=== PATIENT | male | born 1940 | race Caucasian/White ===

== ENCOUNTER 2020-05-30 13:38 | Inpatient (IN) | payer MEDICARE ==
[~2020-05-30] VITALS: Ht 180.3 cm; Wt 87.1 kg
[2020-05-30] MEDS ORDERED: LEVE250T2 PO (14:00)
[2020-05-30] MEDS ORDERED: QUET25TA PO (14:00)
[2020-05-30] MEDS ORDERED: FISH1CAP16 PO (14:00)
[2020-05-30] MEDS ORDERED: ESCI10TA PO (14:00)
[2020-05-30] MEDS ORDERED: ALBU8.5H8 IH (14:00)
[2020-05-30] MEDS ORDERED: NA P133E RC (14:00)
[2020-05-30] MEDS ORDERED: CYAN-51 PO (14:00)
[2020-05-30] MEDS ORDERED: BISA10SU11 RC (14:00)
[2020-05-30] MEDS ORDERED: CHOL100040 PO (14:00)
[2020-05-30] MEDS ORDERED: FERR325T23 PO (14:00)
[2020-05-30] MEDS ORDERED: CLON1TAB PO (14:00)
[2020-05-30] MEDS ORDERED: TRAM50TA2 PO (14:00)
[2020-05-30] MEDS ORDERED: LAMO150T2 PO (14:00)
[2020-05-30] MEDS ORDERED: ASCO-352 PO (14:00)
[2020-05-30] MEDS ORDERED: AMLO5TAB9 PO (14:00)
[2020-05-30] MEDS ORDERED: POLY17PO4 PO (14:00)
[2020-05-30] MEDS ORDERED: OXYC5CAP18 PO (14:00)
[2020-05-30] MEDS ORDERED: LOVA40TA2 PO (14:00)
[2020-05-30] MEDS ORDERED: ACET-868 PO (14:00)
[2020-05-30] MEDS ORDERED: BISA5TAB10 PO (14:00)
[2020-05-30] MEDS ORDERED: MELA1TAB17 PO (14:00)
[2020-05-30] MEDS ORDERED: VITA400C19 PO (14:00)
[2020-05-30] MEDS ORDERED: MAGN400O6 PO (14:00)
[2020-05-30] MEDS ORDERED: FOLI0.4T2 PO (14:00)
[2020-05-30] MEDS ORDERED: OMEP40CA13 PO (14:00)
--- NOTE | 2020-05-30 14:29 | NUR ---
CALLED ART, CHIEF DESIGN DRAFTER FOR PSYCH EVAL.
--- NOTE | 2020-05-30 14:35 | NUR ---
COVID SWAB DONE AND SENT TO LAB
--- NOTE | 2020-05-30 16:03 | NUR ---
REPORT GIVEN TO CHARLOTTE GOMEZ FOR [facility]. PT TO 216-A
--- NOTE | 2020-05-30 16:18 | NUR ---
PT TRANPORTED TO UNIT ON WHEELCHAIR ON STABLE CONDITION.
--- NOTE | 2020-05-30 16:30 | NUR ---
GPS/RN RECEIVED PT [facility] (ORIGINALLY FROM [facility]) ON 5150 FOR GD. PT REFUSING TO TAKE MEDS AND IS ELOPEMENT RISK PER REPORT.ADMITTING ORDERS FROM DR CARRANZA RECEIVED AND CARRIED OUT. BELONGINGS CHECKED FOR CONTRABAND. NO SI OR HI AT THE TIME OF ADMISSION. FAMILY NOTIFIED OF ADMISSION BY CHARGE NURSE TY PORTER. VSS,AMBULATORY.
[2020-05-30 16:38] VITALS: BP 127/61
[2020-05-30] MEDS ORDERED: MAG HYDROX/AL HYDROX/SIMETH 30 ML UDC PO PRN (17:00)
[2020-05-30] MEDS ORDERED: BLOOD SUGAR DIAGNOSTIC 1 EACH STRIP IN ONE (17:00)
[2020-05-30] MEDS ORDERED: clonazePAM 0.5 MG TABLET PO PRN (17:00)
[2020-05-30] MEDS ORDERED: MAGNESIUM HYDROXIDE 30 ML UDC PO PRN ×2 (17:00→17:30)
--- NOTE | 2020-05-30 17:25 | NUR ---
rn notes 88 BS at this time, no coverage needed, patient about to eat dinner
[2020-05-30] MEDS ORDERED: TRAMADOL HCL 50 MG TABLET PO PRN (17:30)
[2020-05-30] MEDS ORDERED: BISACODYL (5 MG) 5 MG TABLET.DR PO PRN (17:30)
[2020-05-30] MEDS ORDERED: NA PHOS,M-B/NA PHOS,DI-BA 1 EA ENEMA RC PRN (17:30)
[2020-05-30] MEDS ORDERED: ACETAMINOPHEN 325 MG TABLET PO PRN (17:30)
[2020-05-30] MEDS ORDERED: POLYETHYLENE GLYCOL 3350 17 GM POWD.PACK PO PRN (17:30)
[2020-05-30] MEDS ORDERED: BISACODYL SUPP (10 MG) 10 MG/SUPP.RECT SUPP.RECT RC PRN (17:30)
[2020-05-30] MEDS ORDERED: ALBUTEROL FS 2.5 MG/0.5 ML VIAL.NEB NEB PRN (19:30)
[2020-05-30 20:17] VITALS: BP 126/59
[2020-05-30] MEDS: ATORVASTATIN 10 MG TABLET PO SCH (21:28)
[2020-05-30] MEDS: TEMAZEPAM 7.5 MG CAPSULE PO PRN (21:34)
--- NOTE | 2020-05-30 21:35 | NUR ---
GPS-RN NOTE: INSOMNIA PATIENT UNABLE TO SLEEP. ADMINISTERED RESTORIL 7.5MG PO ORDERED. WILL CONTINUE TO MONITOR.
[2020-05-31 07:10] LABS: ALBUMIN 3.3 g/dL (3.4-5.0); BILIRUBIN,TOTAL 0.6 mg/dL (0.2-1.0); CALCIUM, SERUM 8.5 mg/dL (8.5-10.1); CREATININE 1.2 mg/dL (0.6-1.3); POTASSIUM 4.5 mmol/L (3.5-5.1); TOTAL PROTEIN, SERUM 7.2 g/dL (6.4-8.2)
[2020-05-31 08:00] VITALS: BP 135/84
[2020-05-31] MEDS: ASCORBIC ACID 500 MG TABLET PO SCH (10:07)
[2020-05-31] MEDS: PANTOPRAZOLE 40 MG TABLET.DR PO SCH (10:07)
[2020-05-31] MEDS: FERROUS SULFATE (325 MG) 325 MG/TAB TABLET PO SCH (10:07)
[2020-05-31] MEDS: LEVETIRACETAM (250 MG) 250 MG TABLET PO SCH ×2 (10:07→17:49)
[2020-05-31] MEDS: AMLODIPINE BESYLATE 5 MG TABLET PO SCH (10:08)
--- NOTE | 2020-05-31 13:26 | NUR ---
dr. salazar here made aware pt. needs macrodantin med for uti-med ordered.
[2020-05-31] MEDS: QUETIAPINE FUMARATE 25 MG TABLET PO SCH ×2 (14:10→17:49)
[2020-05-31] MEDS: LamoTRIgine 100 MG TABLET PO SCH ×2 (14:10→21:40)
--- NOTE | 2020-05-31 15:48 | NUR ---
given clonopin for agitation.
[2020-05-31 16:00] VITALS: BP 140/85
[2020-05-31] MEDS ORDERED: TEMAZEPAM 7.5 MG CAPSULE PO PRN (16:30)
[2020-05-31] MEDS ORDERED: LORAZEPAM 0.5 MG TABLET PO PRN (16:30)
[2020-05-31] MEDS: clonazePAM 0.5 MG TABLET PO SCH (17:00)
--- NOTE | 2020-05-31 17:50 | NUR ---
klonopin not given at this time as pt. just had med at 1542.
[2020-05-31 20:16] VITALS: BP 127/89
[2020-05-31] MEDS: Z GUARD REMEDY 2 OZ OINT TP PRN (20:56)
[2020-05-31] MEDS: ATORVASTATIN 10 MG TABLET PO SCH (21:58)
[2020-05-31] MEDS: QUETIAPINE FUMARATE 100 MG TABLET PO SCH (22:45)
[2020-06-01] MEDS: PANTOPRAZOLE 40 MG TABLET.DR PO SCH (07:30)
[2020-06-01 08:00] VITALS: BP 135/80
[2020-06-01] MEDS: clonazePAM 0.5 MG TABLET PO SCH ×2 (09:23→17:43)
[2020-06-01] MEDS: LEVETIRACETAM (250 MG) 250 MG TABLET PO SCH ×2 (09:23→17:43)
[2020-06-01] MEDS: LamoTRIgine 100 MG TABLET PO SCH ×2 (09:23→21:09)
[2020-06-01] MEDS: AMLODIPINE BESYLATE 5 MG TABLET PO SCH (09:23)
[2020-06-01] MEDS: ASCORBIC ACID 500 MG TABLET PO SCH (09:24)
[2020-06-01] MEDS: FERROUS SULFATE (325 MG) 325 MG/TAB TABLET PO SCH (09:24)
[2020-06-01] MEDS: QUETIAPINE FUMARATE 25 MG TABLET PO SCH ×2 (09:24→17:43)
[2020-06-01] MEDS ORDERED: OLANZAPINE 10 MG VIAL IM STA (12:35)
--- NOTE | 2020-06-01 12:36 | NUR ---
RN NOTE:PATIENT AGITATED AND YELLING ,ASSAULTIVE NOT FOLLOWING DIRECTIONS CALLED WITH NEW ORDER ZYPREXA 5MG IM ,PATIENT VOLUNTARILY ACCEPT ZYPREXA 5MG IM STAT.WILL CONTINUE TO MONITOR .
--- NOTE | 2020-06-01 14:28 | NUR ---
RN NOTE:PATIENT MEDICATED WITH ATIVAN 0.5MG FOR ANXIETY ,WILL CONTINUE TO MONITOR.
--- NOTE | 2020-06-01 14:42 | NUR ---
RN-CO: Patient is still awake after giving Zyprexa 5 mg IM, non redirectable with very unsteady gait. Trying to walk and refusing assistance from the staff. Tried to hit RN and LISW when we tried to assists him. Family called to unit and complaining that we placed him in kei chair. Dr Case was paged and she ordered 1:1 sitter until pt is redirectable.
[2020-06-01 15:50] LABS: BASOPHILS # (AUTO) 0.1 /CMM (0.0-0.2); BASOPHILS % (AUTO) 1.2 % (0.0-2.0); EOSINOPHILS % (AUTO) 2.4 % (0.0-6.0); HEMATOCRIT 44 % (39-51); HEMOGLOBIN 14.5 g/dL (13.5-17.5); LYMPHOCYTES # (AUTO) 2.8 /CMM (0.8-4.8); LYMPHOCYTES % (AUTO) 27.9 % (20.0-44.0); MEAN CORPUSCULAR HGB CONC 33 g/dl (31.0-36.0); MEAN CORPUSCULAR VOLUME 97 fL (80-96); MONOCYTES # (AUTO) 0.9 /CMM (0.1-1.30); MONOCYTES % (AUTO) 9.3 % (2.0-12.0); NEUTROPHILS # (AUTO) 5.9 /CMM (1.8-8.9); NEUTROPHILS % (AUTO) 59.2 % (43.0-81.0); PLATELET COUNT (AUTO) 301 /CMM (150-450); RED BLOOD CELL COUNT(AUTO) 4.52 MIL/uL (4.5-6.0)
[2020-06-01 16:00] VITALS: BP 119/72
[2020-06-01 16:24] LABS: ALBUMIN 3.7 g/dL (3.4-5.0); BILIRUBIN,TOTAL 0.4 mg/dL (0.2-1.0); CALCIUM, SERUM 8.9 mg/dL (8.5-10.1); CREATININE 1.3 mg/dL (0.6-1.3); POTASSIUM 4.3 mmol/L (3.5-5.1); TOTAL PROTEIN, SERUM 7.7 g/dL (6.4-8.2)
[2020-06-01 20:11] VITALS: BP 141/80
[2020-06-01] MEDS: QUETIAPINE FUMARATE 100 MG TABLET PO SCH (22:10)
[2020-06-01] MEDS: ATORVASTATIN 10 MG TABLET PO SCH (22:10)
--- NOTE | 2020-06-02 05:55 | NUR ---
GPS RN NOTE PATIENT SLEPT WELL AT NIGHT, ON 1:1 SITTER OBSERVATION FOR FALL PREVENTION. ATTEMPTS TO GET OUT OF BED UNASSISTED, UNSTEADY, HIGH FALL RISK. PATIENT IS REDIRECTABLE ONCE EXPLAINED BUT NEEDS FREQUENT REMINDERS DUE TO CONFUSION & FORGETFULNESS. NO AGITATION EPISODES NOTED AT NIGHT. CONTINUING TO MONITOR FO SAFETY, MOOD & BEHAVIOR.
[2020-06-02] MEDS: PANTOPRAZOLE 40 MG TABLET.DR PO SCH (07:46)
[2020-06-02 08:00] VITALS: BP 129/70
--- NOTE | 2020-06-02 09:00 | NUR ---
RN NOTE- PT IN BED ALERT ORIENTED TO PERSON ONLY CONFUSED DISORGANIZED MED COMPLIANT DENIES SI HI AH VH THOUGH CONFUSION AND THOUGHT PROCESSES MAKE THIS SUSPECT. PT WITH NO BEHAVIORAL ISSUES THIS MORNING . PO INTAKE GOOD
[2020-06-02] MEDS: LamoTRIgine 100 MG TABLET PO SCH ×2 (09:35→21:00)
[2020-06-02] MEDS: FERROUS SULFATE (325 MG) 325 MG/TAB TABLET PO SCH (09:36)
[2020-06-02] MEDS: LEVETIRACETAM (250 MG) 250 MG TABLET PO SCH ×2 (09:37→16:11)
[2020-06-02] MEDS: AMLODIPINE BESYLATE 5 MG TABLET PO SCH (09:37)
[2020-06-02] MEDS: ASCORBIC ACID 500 MG TABLET PO SCH (09:37)
[2020-06-02] MEDS: OLANZAPINE 5 MG/TAB.RAPDIS PO SCH ×2 (09:40→16:11)
--- NOTE | 2020-06-02 11:58 | NUR ---
WOUND CARE CONSULT: PT EATING AT THIS TIME. PER RN, PT BECOMES EASILY AGITATED. WILL SEE PT AT LATER TIME PT CONDITION PERMITS.
--- NOTE | 2020-06-02 12:14 | NUR ---
Initial Discharge Plan: Patient currently resides at [facility] [address] [place] [address] ([phone]). ANTONIO spoke with Abdullahi, community sports coordinator at the facility who stated that the patient was there for short-term care, and theya re unsure at this time if they can accept him back due to his behaviors. ANTONIO spoke with pt's , Lauren ([phone]) and discussed treatment and discharge planning.
--- NOTE | 2020-06-02 12:17 | NUR ---
Family Contact: ANTONIO spoke with pt's , Lauren ([phone]) and discussed treatment and discharge planning. Lauren stated that she would like patient to return to [facility] for short term therapy and then she would like to to return back home. This pattern chart writer informed Lauren to speak with the facility regarding her requests.
--- NOTE | 2020-06-02 12:18 | NUR ---
ANTONIO Facility Contact: Patient currently resides at [facility] [address] [place] [address] ([phone]). ANTONIO spoke with Abdullahi, rn admissions at the facility who stated that the patient was there for short-term care, and they are unsure at this time if they can accept him back due to his behaviors. This marine underwriter explained that the patient will be stabilized and have the appropriate medications before returning back to their facility. Abdullahi stated that she will speak with the patient's family and discuss a plan.
[2020-06-02] MEDS: clonazePAM 0.5 MG TABLET PO SCH ×2 (13:18→16:11)
[2020-06-02 16:00] VITALS: BP 121/78
[2020-06-02 19:56] VITALS: BP 126/71
[2020-06-02] MEDS: ATORVASTATIN 10 MG TABLET PO SCH (21:03)
[2020-06-02] MEDS: TEMAZEPAM 7.5 MG CAPSULE PO PRN (21:44)
[2020-06-03] MEDS: ACETAMINOPHEN 325 MG TABLET PO PRN ×2 (06:17→22:23)
--- NOTE | 2020-06-03 06:24 | NUR ---
GPS RN NOTE: PT WOKE UP THIS MORNING AT 0600 AND HAD A BM, AFTER WHICH PT COMPLAINED OF SHOULDER PAIN. TYLENOL 325MG 2 TABS/650MG GIVEN PO PRN ORDERED. PT CURRENTLY LAYING IN BED CALM, NO S/S OF DISTRESS. WILL CONTINUE TO MONITOR AND ENDORSE TO AM SHIFT.
[2020-06-03] MEDS: PANTOPRAZOLE 40 MG TABLET.DR PO SCH ×2 (07:42→08:20)
[2020-06-03 08:00] VITALS: BP 147/95
[2020-06-03] MEDS: clonazePAM 0.5 MG TABLET PO SCH ×3 (08:19→16:02)
[2020-06-03] MEDS: FERROUS SULFATE (325 MG) 325 MG/TAB TABLET PO SCH (08:19)
[2020-06-03] MEDS: ASCORBIC ACID 500 MG TABLET PO SCH (08:19)
[2020-06-03] MEDS: LamoTRIgine 100 MG TABLET PO SCH ×2 (08:20→21:04)
[2020-06-03] MEDS: LEVETIRACETAM (250 MG) 250 MG TABLET PO SCH ×2 (08:20→16:02)
[2020-06-03] MEDS: OLANZAPINE 5 MG/TAB.RAPDIS PO SCH ×2 (08:20→16:02)
[2020-06-03] MEDS: AMLODIPINE BESYLATE 5 MG TABLET PO SCH (08:21)
--- NOTE | 2020-06-03 09:00 | NUR ---
RN NOTE-PT QUIET CALM THIS MORNING POLITE ORIENTED TO PERSON ONLY MED COMPLIANT REPOSITIONED FOR COMFORT NEEDS ATTENDED NO BEHAVIORAL ISSUES
--- NOTE | 2020-06-03 10:32 | NUR ---
WOUND CARE CONSULT: PER RN, NO NEED FOR WOUND CONSULT DUE TO PT HAS INTACT SKIN AND ANT SCORE IS 19. WILL SEE PRN.
[2020-06-03 16:00] VITALS: BP 105/68
[2020-06-03 20:56] VITALS: BP 123/75
[2020-06-03] MEDS: ATORVASTATIN 10 MG TABLET PO SCH (21:05)
[2020-06-03] MEDS: TEMAZEPAM 7.5 MG CAPSULE PO PRN (21:57)
--- NOTE | 2020-06-03 21:57 | NUR ---
GPS-RN NOTE: INSOMNIA PATIENT C/O UNABLE TO SLEEP. ADMINISTERED RESTORIL 7.5MG PO ORDERED. WILL CONTINUE TO MONITOR.
[2020-06-03] MEDS: Z GUARD REMEDY 2 OZ OINT TP PRN (22:21)
--- NOTE | 2020-06-03 22:23 | NUR ---
GPS-RN NOTE: C/O BACK PAIN PATIENT C/O BACK PAIN ON A PAIN SCALE OF 3/10. ADMINISTERED ACETAMINOPHEN 650MG PO ORDERED. WILL CONTINUE TO MONITOR FOR EFFECTIVENESS OF MEDICATION.
[2020-06-04 08:00] VITALS: BP 118/65
[2020-06-04] MEDS: LamoTRIgine 100 MG TABLET PO SCH ×2 (08:58→21:01)
[2020-06-04] MEDS: LEVETIRACETAM (250 MG) 250 MG TABLET PO SCH ×2 (08:58→16:36)
[2020-06-04] MEDS: FERROUS SULFATE (325 MG) 325 MG/TAB TABLET PO SCH (08:59)
[2020-06-04] MEDS: clonazePAM 0.5 MG TABLET PO SCH ×3 (08:59→16:37)
[2020-06-04] MEDS: OLANZAPINE 5 MG/TAB.RAPDIS PO SCH ×2 (08:59→16:37)
[2020-06-04] MEDS: ASCORBIC ACID 500 MG TABLET PO SCH (08:59)
[2020-06-04] MEDS: AMLODIPINE BESYLATE 5 MG TABLET PO SCH (09:00)
--- NOTE | 2020-06-04 09:24 | NUR ---
ANTONIO Coordination of Care: ANTONIO called [facility] ([phone]) to speak with Abdullahi, materials coordinator and spoke with Dominique, who stated that Abdullahi is a male when this quality analyst/technical writer informed that she spoke with someone earlier this week and spoke with a female stating she is Abdullahi. Dominique stated that Abdullahi has an assistant general manager by the name of Nicky that might've been the person this quality analyst/technical writer spoke with. This quality analyst/technical writer requested to get a call back from Abdullahi today.
--- NOTE | 2020-06-04 09:41 | NUR ---
ANTONIO Brief Individual Counseling: SW met with patient to provide brief individual counseling. Patient presented with disorganized thought process and mumbling speech. Patient was unable to engage in a meaningful conversation at this time due to his presenting behaviors.
[2020-06-04] MEDS: ACETAMINOPHEN 325 MG TABLET PO PRN ×2 (09:54→21:26)
--- NOTE | 2020-06-04 10:40 | NUR ---
Family Contact: SW spoke with pt's , Lauren ([phone]) regarding discharge planing back to [facility], and she stated that she talked to Dominic at [facility] who stated that they have positive COVID case and cannot admite patient back at this time. Lauren requested for this proposal lead writer to seek alternate senior living facility placement for the patient.
--- NOTE | 2020-06-04 10:45 | NUR ---
ANTONIO Coordination of Care: ANTONIO faxed patient's referral packet to [facility] (ph: [phone] fax: [phone]) for review attention to Jael. Addendum: 06/05/20 at 0809 by GRETA LEDEZMA Jael stated that they recently got a COVID positive case and cannot admit for 2 weeks.
[2020-06-04 16:00] VITALS: BP 142/86
[2020-06-04 20:44] VITALS: BP 120/79
[2020-06-04] MEDS: ATORVASTATIN 10 MG TABLET PO SCH (21:01)
--- NOTE | 2020-06-04 21:26 | NUR ---
GPS-RN NOTE: C/O R SHOULDER PAIN PATIENT C/O RIGHT SHOULDER PAIN ON A PAIN SCALE OF 3/10. ADMINISTERED ACETAMINOPHEN 650MG PO ORDERED. WILL CONTINUE TO MONITOR FOR EFFECTIVENESS OF MEDICATION.
[2020-06-04] MEDS: TEMAZEPAM 7.5 MG CAPSULE PO PRN (21:53)
--- NOTE | 2020-06-04 21:53 | NUR ---
GPS-RN NOTE: INSOMNIA PATIENT C/O UNABLE TO SLEEP. ADMINISTERED RESTORIL 7.5MG PO ORDERED. WILL CONTINUE TO MONITOR.
[2020-06-05 08:00] VITALS: BP 141/81
[2020-06-05] MEDS: OLANZAPINE 5 MG/TAB.RAPDIS PO SCH ×2 (08:14→22:04)
[2020-06-05] MEDS: ASCORBIC ACID 500 MG TABLET PO SCH (08:14)
[2020-06-05] MEDS: LamoTRIgine 100 MG TABLET PO SCH ×2 (08:14→21:16)
[2020-06-05] MEDS: FERROUS SULFATE (325 MG) 325 MG/TAB TABLET PO SCH (08:14)
[2020-06-05] MEDS: clonazePAM 0.5 MG TABLET PO SCH ×3 (08:14→16:40)
[2020-06-05] MEDS: LEVETIRACETAM (250 MG) 250 MG TABLET PO SCH ×2 (08:14→16:39)
[2020-06-05] MEDS: PANTOPRAZOLE 40 MG TABLET.DR PO SCH (08:14)
[2020-06-05] MEDS: AMLODIPINE BESYLATE 5 MG TABLET PO SCH (08:15)
--- NOTE | 2020-06-05 08:17 | NUR ---
ANTONIO Coordination of Care: ANTONIO faxed patient's referral packet to [facility] (fax: [phone]) attention to Nayla coordinator mining products and [facility] (fax: [phone]) attention to Salomón coordinator mining products for review and possible placement. Addendum: 06/05/20 at 1053 by GRETA LEDEZMA Spoke with Nayla at [facility] who stated that they have a positive COVID case and cannot accept patient's for another week.
--- NOTE | 2020-06-05 09:08 | NUR ---
ANTONIO Coordination of Care: ANTONIO called [facility] ([phone]) to speak with Abdullahi, creative services coordinator and spoke with Dominique again who stated that Abdullahi is not in yet and she will leave him a message to call this group underwriter back.
[2020-06-05] MEDS: ACETAMINOPHEN 325 MG TABLET PO PRN ×2 (09:57→21:24)
--- NOTE | 2020-06-05 09:59 | NUR ---
GPS NOTE THE PATIENT COMPLAINS OF RIGHT SHOULDER PAIN 11/19. TYLENOL 650 MG PO IS GIVEN. WILL CONTINUE TO MONITOR.
--- NOTE | 2020-06-05 10:50 | NUR ---
ANTONIO Coordination of Care: ANTONIO received a call back from Abdullahi recruiting coordinator at [facility] ([phone]) who stated that they will accept the patient back upon discharge. Abdullahi stated to faxed them the patient's clinicals prior to discharge for them to review and confirm patient's return.
[2020-06-05 16:00] VITALS: BP 129/86
[2020-06-05 19:57] VITALS: BP 120/73
[2020-06-05 20:11] VITALS: BP 120/73
[2020-06-05] MEDS: Z GUARD REMEDY 2 OZ OINT TP PRN (21:23)
[2020-06-05] MEDS: ATORVASTATIN 10 MG TABLET PO SCH (21:24)
--- NOTE | 2020-06-05 21:24 | NUR ---
GPS RN NOTE: RIGHT SHOULDER PAIN PATIENT C/O RIGHT SHOULDER PAIN 12/17, REQUESTED TO GET TYLENOL, PRN TYLENOL 650 MG PO GIVEN. WILL CONTINUE TO MONITOR FOR ANY CHANGE OF CONDITION.
--- NOTE | 2020-06-05 22:10 | NUR ---
GPS RN NOTE ATTEMPTED TO COLLECT URINE SPECIMEN USING A URINAL, BUT PATIENT HAD URINATED IN HIS DIAPER ALREADY & UNABLE TO URINATE AT THIS TIME. REMINDED THE PATIENT TO LET THE NURSE KNOW WHEN NEEDS TO URINATE & PT. VERBALIZED UNDERSTANDING, PT. IS FORGETFUL & WILL TRY TO COLLECT URINE AGAIN LATER.
[2020-06-06 06:31] LABS: BASOPHILS # (AUTO) 0.1 /CMM (0.0-0.2); BASOPHILS % (AUTO) 0.7 % (0.0-2.0); EOSINOPHILS % (AUTO) 3.2 % (0.0-6.0); HEMATOCRIT 44 % (39-51); HEMOGLOBIN 14.4 g/dL (13.5-17.5); LYMPHOCYTES # (AUTO) 3.8 /CMM (0.8-4.8); LYMPHOCYTES % (AUTO) 31.1 % (20.0-44.0); MEAN CORPUSCULAR HGB CONC 33 g/dl (31.0-36.0); MEAN CORPUSCULAR VOLUME 98 fL (80-96); MONOCYTES # (AUTO) 0.8 /CMM (0.1-1.30); MONOCYTES % (AUTO) 6.6 % (2.0-12.0); NEUTROPHILS # (AUTO) 7.1 /CMM (1.8-8.9); NEUTROPHILS % (AUTO) 58.4 % (43.0-81.0); PLATELET COUNT (AUTO) 312 /CMM (150-450); RED BLOOD CELL COUNT(AUTO) 4.49 MIL/uL (4.5-6.0); WHITE BLOOD COUNT (AUTO) 12.2 K/uL (4.3-11.0)
[2020-06-06 07:02] LABS: ALBUMIN 3.5 g/dL (3.4-5.0); BILIRUBIN,TOTAL 0.4 mg/dL (0.2-1.0); CREATININE 1.2 mg/dL (0.6-1.3); MAGNESIUM 2.3 mg/dL (1.8-2.4); PHOSPHORUS 3.9 mg/dL (2.5-4.9); TOTAL PROTEIN, SERUM 7.4 g/dL (6.4-8.2)
[2020-06-06 07:19] LABS: CREATININE, URINE 54.3 MG/DL (30.0-125.0)
[2020-06-06 08:00] VITALS: BP 120/78
[2020-06-06] MEDS: ASCORBIC ACID 500 MG TABLET PO SCH (08:14)
[2020-06-06] MEDS: LamoTRIgine 100 MG TABLET PO SCH ×2 (08:14→21:28)
[2020-06-06] MEDS: OLANZAPINE 5 MG/TAB.RAPDIS PO SCH ×2 (08:14→22:09)
[2020-06-06] MEDS: LEVETIRACETAM (250 MG) 250 MG TABLET PO SCH ×2 (08:14→17:05)
[2020-06-06] MEDS: FERROUS SULFATE (325 MG) 325 MG/TAB TABLET PO SCH (08:14)
[2020-06-06] MEDS: PANTOPRAZOLE 40 MG TABLET.DR PO SCH (08:14)
[2020-06-06] MEDS: AMLODIPINE BESYLATE 5 MG TABLET PO SCH (08:15)
[2020-06-06] MEDS: clonazePAM 0.5 MG TABLET PO SCH ×3 (08:16→17:05)
[2020-06-06 08:31] LABS: APPEARANCE,URINE CLEAR (CLEAR); BILIRUBIN,URINE NEGATIVE (NEGATIVE); BLOOD, URINE NEGATIVE Ery/uL (NEGATIVE); COLOR,URINE YELLOW (YELLOW); KETONES,URINE NEGATIVE (NEGATIVE); LEUKOCYTE ESTERASE ,URINE NEGATIVE (NEGATIVE); NITRITE, URINE NEGATIVE (NEGATIVE); PROTEIN,URINE NEGATIVE (NEGATIVE); UGLUCOSE NEGATIVE (NEGATIVE); UROBILINOGEN,URINE 0.2 EU/dL (0.2)
[2020-06-06 09:43] LABS: EOSINOPHIL,URINE None Seen
[2020-06-06 16:00] VITALS: BP 120/81
[2020-06-06 19:45] VITALS: BP 117/83
[2020-06-06] MEDS: ATORVASTATIN 10 MG TABLET PO SCH (22:09)
[2020-06-06] MEDS: Z GUARD REMEDY 2 OZ OINT TP PRN (22:09)
--- NOTE | 2020-06-07 06:32 | NUR ---
RN NOTES: PT. RESTING IN HIS ROOM , NO ACUTE DISTRESS, NO CHANGES NOTED, ALL NEEDS ANTICIPATED, WILL CONTINUITY WITH CARE.
[2020-06-07] MEDS: PANTOPRAZOLE 40 MG TABLET.DR PO SCH (07:50)
[2020-06-07] MEDS: OLANZAPINE 5 MG/TAB.RAPDIS PO SCH ×2 (07:51→21:51)
[2020-06-07] MEDS: FERROUS SULFATE (325 MG) 325 MG/TAB TABLET PO SCH (07:51)
[2020-06-07] MEDS: clonazePAM 0.5 MG TABLET PO SCH ×3 (07:51→16:40)
[2020-06-07] MEDS: LEVETIRACETAM (250 MG) 250 MG TABLET PO SCH ×2 (07:51→16:40)
[2020-06-07] MEDS: LamoTRIgine 100 MG TABLET PO SCH ×2 (07:51→21:44)
[2020-06-07] MEDS: ASCORBIC ACID 500 MG TABLET PO SCH (07:52)
[2020-06-07] MEDS: AMLODIPINE BESYLATE 5 MG TABLET PO SCH (07:52)
[2020-06-07 08:00] VITALS: BP 142/75
[2020-06-07 16:00] VITALS: BP 117/74
[2020-06-07 20:48] VITALS: BP 136/67
[2020-06-07] MEDS: ATORVASTATIN 10 MG TABLET PO SCH (21:51)
[2020-06-08] MEDS: clonazePAM 0.5 MG TABLET PO SCH ×3 (07:58→16:48)
[2020-06-08] MEDS: FERROUS SULFATE (325 MG) 325 MG/TAB TABLET PO SCH (07:58)
[2020-06-08] MEDS: LEVETIRACETAM (250 MG) 250 MG TABLET PO SCH ×2 (07:58→16:48)
[2020-06-08] MEDS: LamoTRIgine 100 MG TABLET PO SCH ×2 (07:59→21:15)
[2020-06-08] MEDS: ASCORBIC ACID 500 MG TABLET PO SCH (07:59)
[2020-06-08] MEDS: OLANZAPINE 5 MG/TAB.RAPDIS PO SCH ×2 (07:59→21:16)
[2020-06-08 08:00] VITALS: BP 114/88
[2020-06-08] MEDS: AMLODIPINE BESYLATE 5 MG TABLET PO SCH (08:00)
[2020-06-08] MEDS: PANTOPRAZOLE 40 MG TABLET.DR PO SCH (08:08)
[2020-06-08 16:00] VITALS: BP 125/73
[2020-06-08 20:54] VITALS: BP 116/80
[2020-06-08] MEDS: ATORVASTATIN 10 MG TABLET PO SCH (21:16)
[2020-06-09] MEDS: PANTOPRAZOLE 40 MG TABLET.DR PO SCH (07:37)
[2020-06-09 08:00] VITALS: BP 133/95
[2020-06-09] MEDS: clonazePAM 0.5 MG TABLET PO SCH ×3 (08:12→16:15)
[2020-06-09] MEDS: OLANZAPINE 5 MG/TAB.RAPDIS PO SCH ×2 (08:12→22:14)
[2020-06-09] MEDS: FERROUS SULFATE (325 MG) 325 MG/TAB TABLET PO SCH (08:12)
[2020-06-09] MEDS: LamoTRIgine 100 MG TABLET PO SCH ×2 (08:12→21:08)
[2020-06-09] MEDS: LEVETIRACETAM (250 MG) 250 MG TABLET PO SCH ×2 (08:12→16:15)
[2020-06-09] MEDS: AMLODIPINE BESYLATE 5 MG TABLET PO SCH (08:12)
[2020-06-09] MEDS: ASCORBIC ACID 500 MG TABLET PO SCH (08:12)
--- NOTE | 2020-06-09 09:00 | NUR ---
RN NOTE-PT POUNDING ON TRAY AND TABLES IRRITABLE LOUD YELLING ABOUT BEING DC MED COMPLIANT REQUESTING RX
--- NOTE | 2020-06-09 09:14 | NUR ---
RN NOTE- PT SLAMMING THINGS AROUND POUNDING ON TABLE DEMANDING TO BE DC. NOT DIRECTABLE. DR CARRANZA ORDERED ATIVAN 0.5 MG AND ZYPREXA 2.5 MG GIVEN IM.
[2020-06-09] MEDS ORDERED: OLANZAPINE 10 MG VIAL IM ONE (09:30)
[2020-06-09] MEDS ORDERED: LORAZEPAM INJ 2 MG/ML VIAL IM ONE (09:30)
--- NOTE | 2020-06-09 09:48 | NUR ---
RN NOTE- PT REQUESTING RX. ATIVAN 0.5 MG AND ZYPREXA 2.5 MG GIVEN IM . TOLERATED WELL.
[2020-06-09 09:55] VITALS: BP 119/90
--- NOTE | 2020-06-09 10:45 | NUR ---
RN NOTE- PT CALMER DECREASED AGITATION AND RESTLESSNESS. NO MORE STRIKING OUT. RX EFFECTIVE
[2020-06-09 16:00] VITALS: BP 120/75
[2020-06-09 20:28] VITALS: BP_SYST 132; BP_SYST 156; BP_DIAS 65; BP_DIAS 70
[2020-06-09] MEDS: Z GUARD REMEDY 2 OZ OINT TP PRN (20:51)
[2020-06-09] MEDS: ATORVASTATIN 10 MG TABLET PO SCH (22:14)
--- NOTE | 2020-06-09 22:30 | NUR ---
RN NOTES: PT. RESTING IN HIS ROOM , NO BEHAVIOR PROBLEMS NOTED, MED COMPLIANT. NO ACUTE DISTRESS NOTED, NO CHANGES NOTED, ALL NEEDS ANTICIPATED, WILL CONTINUITY WITH CARE.
--- NOTE | 2020-06-10 06:23 | NUR ---
RN NOTES: PT. RESTING IN HIS ROOM , NO ACUTE DISTRESS NOTED, NO CHANGES NOTED, ALL NEEDS ANTICIPATED, WILL CONTINUITY WITH CARE.
[2020-06-10] MEDS: PANTOPRAZOLE 40 MG TABLET.DR PO SCH (07:45)
[2020-06-10 08:00] VITALS: BP 130/85
[2020-06-10] MEDS: clonazePAM 0.5 MG TABLET PO SCH ×3 (08:00→16:20)
[2020-06-10] MEDS: FERROUS SULFATE (325 MG) 325 MG/TAB TABLET PO SCH (08:00)
[2020-06-10] MEDS: AMLODIPINE BESYLATE 5 MG TABLET PO SCH (08:00)
[2020-06-10] MEDS: LEVETIRACETAM (250 MG) 250 MG TABLET PO SCH ×2 (08:00→16:20)
[2020-06-10] MEDS: LamoTRIgine 100 MG TABLET PO SCH ×2 (08:00→21:13)
[2020-06-10] MEDS: OLANZAPINE 5 MG/TAB.RAPDIS PO SCH ×2 (08:00→21:13)
[2020-06-10] MEDS: ASCORBIC ACID 500 MG TABLET PO SCH (08:00)
[2020-06-10] MEDS: oxyCODONE IR immediate release 5 MG PO PRN (14:46)
[2020-06-10 16:00] VITALS: BP 124/58
[2020-06-10 20:33] VITALS: BP 130/51
[2020-06-10] MEDS: ATORVASTATIN 10 MG TABLET PO SCH (21:13)
[2020-06-11] MEDS: TEMAZEPAM 7.5 MG CAPSULE PO PRN (01:35)
--- NOTE | 2020-06-11 01:38 | NUR ---
GPS RN NOTE: INSOMNIA PT UNABLE TO SLEEP. ADMINISTERED RESTORIL 7.5 MG PO PRN ORDERED. WILL CONTINUE TO MONITOR FOR SAFETY AND BEHAVIOR.
[2020-06-11 08:00] VITALS: BP 127/98
[2020-06-11] MEDS: PANTOPRAZOLE 40 MG TABLET.DR PO SCH (08:16)
[2020-06-11] MEDS: ASCORBIC ACID 500 MG TABLET PO SCH (08:16)
[2020-06-11] MEDS: clonazePAM 0.5 MG TABLET PO SCH ×3 (08:16→17:02)
[2020-06-11] MEDS: LEVETIRACETAM (250 MG) 250 MG TABLET PO SCH ×2 (08:16→17:02)
[2020-06-11] MEDS: LamoTRIgine 100 MG TABLET PO SCH ×2 (08:16→20:21)
[2020-06-11] MEDS: AMLODIPINE BESYLATE 5 MG TABLET PO SCH (08:17)
[2020-06-11] MEDS: OLANZAPINE 5 MG/TAB.RAPDIS PO SCH ×2 (08:17→21:14)
[2020-06-11] MEDS: FERROUS SULFATE (325 MG) 325 MG/TAB TABLET PO SCH (08:17)
[2020-06-11] MEDS: OLANZAPINE 2.5 MG TABLET PO SCH (12:38)
[2020-06-11 16:00] VITALS: BP 134/76
[2020-06-11 20:12] VITALS: BP 138/95
[2020-06-11] MEDS: ACETAMINOPHEN 325 MG TABLET PO PRN (20:17)
--- NOTE | 2020-06-11 20:17 | NUR ---
GPS RN NOTE: HEADACHE PATIENT STATED THAT HE HAS HEADACHE, UNABLE TO SCALE DUE TO FORGETFULNESS & REQUESTED TO TAKE PAIN MEDICINE, PRN TYLENOL 650 MG PO GIVEN. WILL CONTINUE TO MONITOR.
[2020-06-11] MEDS: ATORVASTATIN 10 MG TABLET PO SCH (21:14)
[2020-06-12 08:00] VITALS: BP 166/91
[2020-06-12] MEDS: ASCORBIC ACID 500 MG TABLET PO SCH (08:05)
[2020-06-12] MEDS: clonazePAM 0.5 MG TABLET PO SCH ×3 (08:05→17:12)
[2020-06-12] MEDS: OLANZAPINE 5 MG/TAB.RAPDIS PO SCH ×2 (08:06→21:13)
[2020-06-12] MEDS: FERROUS SULFATE (325 MG) 325 MG/TAB TABLET PO SCH (08:06)
[2020-06-12] MEDS: LamoTRIgine 100 MG TABLET PO SCH ×2 (08:06→21:12)
[2020-06-12] MEDS: AMLODIPINE BESYLATE 5 MG TABLET PO SCH (08:06)
[2020-06-12] MEDS: PANTOPRAZOLE 40 MG TABLET.DR PO SCH (08:06)
[2020-06-12] MEDS: LEVETIRACETAM (250 MG) 250 MG TABLET PO SCH ×2 (08:06→17:12)
[2020-06-12] MEDS: OLANZAPINE 2.5 MG TABLET PO SCH (12:05)
[2020-06-12 16:00] VITALS: BP 157/84
[2020-06-12 20:03] VITALS: BP 117/67
[2020-06-12] MEDS: ATORVASTATIN 10 MG TABLET PO SCH (21:12)
[2020-06-13 08:00] VITALS: BP 120/79
[2020-06-13] MEDS: ASCORBIC ACID 500 MG TABLET PO SCH (08:04)
[2020-06-13] MEDS: LEVETIRACETAM (250 MG) 250 MG TABLET PO SCH ×2 (08:04→16:38)
[2020-06-13] MEDS: OLANZAPINE 5 MG/TAB.RAPDIS PO SCH ×2 (08:04→22:01)
[2020-06-13] MEDS: clonazePAM 0.5 MG TABLET PO SCH ×3 (08:04→16:38)
[2020-06-13] MEDS: PANTOPRAZOLE 40 MG TABLET.DR PO SCH (08:04)
[2020-06-13] MEDS: FERROUS SULFATE (325 MG) 325 MG/TAB TABLET PO SCH (08:04)
[2020-06-13] MEDS: LamoTRIgine 100 MG TABLET PO SCH ×2 (08:05→20:59)
[2020-06-13] MEDS: AMLODIPINE BESYLATE 5 MG TABLET PO SCH (08:52)
[2020-06-13] MEDS: OLANZAPINE 2.5 MG TABLET PO SCH (12:19)
--- NOTE | 2020-06-13 12:59 | NUR ---
Facility Contact: ANTONIO called [facility] ([phone]) and spoke to Nicky from the admissions department who stated that the pt cannot return to their facility at this time because two of their employees were positive. She stated that the admissions are closed for the next 14 days.
--- NOTE | 2020-06-13 13:19 | NUR ---
SNF Referral: ANTONIO faxed a referral to the following two facilities that are listed below. [facility] with attention to Marli to the fax number: [phone] [facility] with attention to Stanley to the fax number: [phone]
[2020-06-13 16:00] VITALS: BP 109/63
--- NOTE | 2020-06-13 16:24 | NUR ---
SNF Contact: Marli ([phone]) from [facility] contacted the and stated that the pt was accepted to their facility.
[2020-06-13 20:00] VITALS: BP 152/77
[2020-06-13 20:13] VITALS: BP 152/77
[2020-06-13] MEDS: ACETAMINOPHEN 325 MG TABLET PO PRN (20:53)
--- NOTE | 2020-06-13 20:54 | NUR ---
GPS RN NOTE: RIGHT SHOULDER PAIN PATIENT C/O RIGHT SHOULDER PAIN, 12/17, REQUESTED FOR PAIN MEDICINE, PRN TYLENOL 650 MG PO GIVEN ORDERED. WILL CONTINUE TO MONITOR.
[2020-06-13 21:30] VITALS: BP 139/70
[2020-06-13] MEDS: ATORVASTATIN 10 MG TABLET PO SCH (21:33)
[2020-06-14 06:27] LABS: BASOPHILS # (AUTO) 0.1 /CMM (0.0-0.2); BASOPHILS % (AUTO) 1.2 % (0.0-2.0); HEMATOCRIT 41 % (39-51); HEMOGLOBIN 13.5 g/dL (13.5-17.5); LYMPHOCYTES # (AUTO) 2.5 /CMM (0.8-4.8); LYMPHOCYTES % (AUTO) 34.3 % (20.0-44.0); MEAN CORPUSCULAR HGB CONC 33 g/dl (31.0-36.0); MEAN CORPUSCULAR VOLUME 97 fL (80-96); MONOCYTES # (AUTO) 0.7 /CMM (0.1-1.30); NEUTROPHILS # (AUTO) 3.7 /CMM (1.8-8.9); NEUTROPHILS % (AUTO) 51.5 % (43.0-81.0); PLATELET COUNT (AUTO) 252 /CMM (150-450); RED BLOOD CELL COUNT(AUTO) 4.27 MIL/uL (4.5-6.0); WHITE BLOOD COUNT (AUTO) 7.3 K/uL (4.3-11.0)
[2020-06-14 06:46] LABS: CALCIUM, SERUM 8.4 mg/dL (8.5-10.1); CREATININE 1.1 mg/dL (0.6-1.3)
[2020-06-14] MEDS: PANTOPRAZOLE 40 MG TABLET.DR PO SCH (07:46)
[2020-06-14 08:00] VITALS: BP 147/92
[2020-06-14] MEDS: clonazePAM 0.5 MG TABLET PO SCH ×3 (08:48→16:47)
[2020-06-14] MEDS: LamoTRIgine 100 MG TABLET PO SCH ×2 (08:48→21:27)
[2020-06-14] MEDS: FERROUS SULFATE (325 MG) 325 MG/TAB TABLET PO SCH (08:48)
[2020-06-14] MEDS: ASCORBIC ACID 500 MG TABLET PO SCH (08:49)
[2020-06-14] MEDS: OLANZAPINE 5 MG/TAB.RAPDIS PO SCH ×2 (08:49→21:27)
[2020-06-14] MEDS: LEVETIRACETAM (250 MG) 250 MG TABLET PO SCH ×2 (08:49→16:47)
[2020-06-14] MEDS: AMLODIPINE BESYLATE 5 MG TABLET PO SCH (08:50)
--- NOTE | 2020-06-14 09:36 | NUR ---
RN NOTE: PAIN PT C/O RIGHT SHOULDER PAIN 03/19. MEDICATED WITH ULTRAM PO PRN
[2020-06-14] MEDS: oxyCODONE IR immediate release 5 MG PO PRN ×2 (11:42→20:49)
--- NOTE | 2020-06-14 11:42 | NUR ---
RN NOTE: PAIN PT REPORTS 9/10 RIGHT SHOULDER PAIN. ULTRAM GIVEN WITH MINIMAL EFFECTIVENESS. MEDICATED WITH OXYCODONE PO PRN
--- NOTE | 2020-06-14 13:33 | NUR ---
RN NOTE: PT SLEEPING INTERMITTENTLY. EASY TO AWAKEN. REPORTS ZERO PAIN AT PRESENT TIME.
[2020-06-14] MEDS: OLANZAPINE 2.5 MG TABLET PO SCH (13:50)
[2020-06-14 16:00] VITALS: BP 138/89
[2020-06-14 20:02] VITALS: BP 111/60
--- NOTE | 2020-06-14 20:49 | NUR ---
GPS RN NOTE: PAIN PT. C/O 06/19 PAIN IN LOWER BACK. ADMINISTERED OXY IR 5 MG PO PRN ORDERED. WILL CONTINUE TO MONITOR FOR SAFETY AND BEHAVIOR
[2020-06-14] MEDS: ATORVASTATIN 10 MG TABLET PO SCH (21:27)
[2020-06-15 08:00] VITALS: BP 129/71
[2020-06-15] MEDS: PANTOPRAZOLE 40 MG TABLET.DR PO SCH (08:20)
[2020-06-15] MEDS: clonazePAM 0.5 MG TABLET PO SCH ×3 (08:44→17:16)
[2020-06-15] MEDS: LEVETIRACETAM (250 MG) 250 MG TABLET PO SCH ×2 (08:45→17:16)
[2020-06-15] MEDS: FERROUS SULFATE (325 MG) 325 MG/TAB TABLET PO SCH (08:45)
[2020-06-15] MEDS: AMLODIPINE BESYLATE 5 MG TABLET PO SCH (08:45)
[2020-06-15] MEDS: ASCORBIC ACID 500 MG TABLET PO SCH (08:45)
[2020-06-15] MEDS: OLANZAPINE 5 MG/TAB.RAPDIS PO SCH ×2 (08:45→21:13)
[2020-06-15] MEDS: LamoTRIgine 100 MG TABLET PO SCH ×2 (08:46→21:13)
[2020-06-15] MEDS: OLANZAPINE 2.5 MG TABLET PO SCH (12:06)
[2020-06-15 16:00] VITALS: BP 135/77
[2020-06-15 20:00] VITALS: BP 119/73
[2020-06-15] MEDS: ATORVASTATIN 10 MG TABLET PO SCH (21:13)
[2020-06-16] MEDS: PANTOPRAZOLE 40 MG TABLET.DR PO SCH (07:58)
[2020-06-16 08:00] VITALS: BP 132/75
[2020-06-16] MEDS: LEVETIRACETAM (250 MG) 250 MG TABLET PO SCH ×2 (08:14→17:19)
[2020-06-16] MEDS: clonazePAM 0.5 MG TABLET PO SCH ×3 (08:14→17:19)
[2020-06-16] MEDS: FERROUS SULFATE (325 MG) 325 MG/TAB TABLET PO SCH (08:14)
[2020-06-16] MEDS: OLANZAPINE 5 MG/TAB.RAPDIS PO SCH ×2 (08:14→21:26)
[2020-06-16] MEDS: LamoTRIgine 100 MG TABLET PO SCH ×2 (08:14→21:25)
[2020-06-16] MEDS: ASCORBIC ACID 500 MG TABLET PO SCH (08:15)
[2020-06-16] MEDS: AMLODIPINE BESYLATE 5 MG TABLET PO SCH (08:15)
--- NOTE | 2020-06-16 12:10 | NUR ---
RN NOTE: SWALLOW EVAL PT NOTED TO COUGH AFTER DRINKING THIN LIQUIDS. Hellen RODRIGUEZ DIRECTOR WOMEN NOTIFIED AND ORDER FOR SWALLOW EVAL TO BE DONE
[2020-06-16] MEDS: OLANZAPINE 2.5 MG TABLET PO SCH (13:09)
[2020-06-16 16:00] VITALS: BP 113/68
[2020-06-16 20:52] VITALS: BP 134/70
[2020-06-16] MEDS: ATORVASTATIN 10 MG TABLET PO SCH (21:26)
[2020-06-17 08:00] VITALS: BP 124/74
[2020-06-17] MEDS: PANTOPRAZOLE 40 MG TABLET.DR PO SCH (08:18)
--- NOTE | 2020-06-17 08:19 | NUR ---
FAMILY CONTACT: SW spoke with pt's , Lauren ([phone]) to inform her pt will be discharged on this present day to [facility] Address: [address], [place] [address] . agreed with discharge plan.
[2020-06-17] MEDS: ASCORBIC ACID 500 MG TABLET PO SCH (08:45)
[2020-06-17] MEDS: LEVETIRACETAM (250 MG) 250 MG TABLET PO SCH (08:45)
[2020-06-17] MEDS: LamoTRIgine 100 MG TABLET PO SCH (08:45)
[2020-06-17] MEDS: FERROUS SULFATE (325 MG) 325 MG/TAB TABLET PO SCH (08:45)
[2020-06-17] MEDS: OLANZAPINE 5 MG/TAB.RAPDIS PO SCH (08:46)
[2020-06-17] MEDS: clonazePAM 0.5 MG TABLET PO SCH ×2 (08:46→13:13)
[2020-06-17] MEDS: AMLODIPINE BESYLATE 5 MG TABLET PO SCH (08:47)
--- NOTE | 2020-06-17 09:01 | NUR ---
DISCHARGE NOTE: Pt will be discharged at 2:00pm via [facility] to [facility] Address: [address] [place] [address] . Pts , Lauren ([phone]) has been notified and agrees with discharge plan. Pt is alert and oriented x2 to self and place. Pts insight and judgement is impaired. Pts mood is euthymic with congruent affect. Pt denied visual/auditory hallucinations and denies suicidal/homicidal ideation. Pt appears well groomed and dressed. Pt will be under the care of Psychiatrist: Dr. Alfredo Address: [address] [place] [address] Phone: and Quality Assurance Consultant: Dr Eng Address: [address] [address] [phone]. The multidisciplinary exit care form was done, printed, signed, and given to the patient.
[2020-06-17] MEDS: OLANZAPINE 2.5 MG TABLET PO SCH (13:13)
[2020-06-17 16:00] VITALS: BP 125/90
--- NOTE | 2020-06-17 16:10 | NUR ---
DIESEL PILE HAMMER OPERATOR NOTE: 80 YEAR OLD MALE DISCHARGED TO [facility] IN STABLE CONDITION. COMPLIANT WITH MEDICATIONS, COOPERATIVE WITH TREATMENT PLANS. PATIENT DENIES SI/HI AND INSTRUCTED TO GO TO THE CLOSEST ER IF DEVELOPING SI/HI. BEHAVIOR IMPROVED, PSYCHIATRIC TREATMENT PLANS MET, MEDICAL TREATMENT PLANS DEFERRED FOR CONTINUAL MONITORING. ATTEMPTED TO EDUCATE PATIENT AFTER CARE PLAN AND COPY PROVIDED. RETURNED PERSONAL BELONGINGS TO PATIENT. MEDICATIONS RECONCILED WITH DR. CARRANZA AND RADHA GAUGER DELIVERY. REPORT GIVEN TO KIET PORTER FOR CONTINUITY OF CARE. PATIENT UNABLE TO SIGN DISCHARGE PAPERWORK. PT REFUSED SKIN ASSESSMENT. SKIN INTACT ON ADMIT. PATIENT LEFT THE UNIT AT 1610 [facility] [employer] IN STABLE CONDITION.
== END 2020-06-17 16:10 | DRG 885 ==
LOC: ER 13:42 → GPS 16:08
PROVIDERS: ADMIT Psychiatry & Neurology Psychosomatic Medicine; ATTEND Internal Medicine
DX: F29 Unspecified psychosis not due to a substance or known physiological condition (principal); F01.50 Vascular dementia, unspecified severity, without behavioral disturbance, psychotic disturbance, mood disturbance, and anxiety; N17.9 Acute kidney failure, unspecified; N18.3 Chronic kidney disease, stage 3 (moderate); E44.0 Moderate protein-calorie malnutrition; F23 Brief psychotic disorder; G91.9 Hydrocephalus, unspecified; J44.9 Chronic obstructive pulmonary disease, unspecified; G40.909 Epilepsy, unspecified, not intractable, without status epilepticus; F41.9 Anxiety disorder, unspecified; E86.0 Dehydration; G89.29 Other chronic pain; K21.9 Gastro-esophageal reflux disease without esophagitis; I12.9 Hypertensive chronic kidney disease with stage 1 through stage 4 chronic kidney disease, or unspecified chronic kidney disease; Z87.820 Personal history of traumatic brain injury; Z73.6 Limitation of activities due to disability; R53.1 Weakness; F25.0 Schizoaffective disorder, bipolar type; E88.09 Other disorders of plasma-protein metabolism, not elsewhere classified; Z68.26 Body mass index [BMI] 26.0-26.9, adult; F19.90 Other psychoactive substance use, unspecified, uncomplicated
CPT/HCPCS: 36415; 80048-TC; 80053-TC; 80061-TC; 81000-TC; 82570-TC; 82962-TC; 83605-TC; 83735-TC; 84100-TC; 84155-TC; 84300-TC; 85025-TC; 87081-TC; 92611-TC; 97116-TC; 97530-TC; C9803-CS; J2060; J3490